=== PATIENT | male | born 1985 | race Caucasian/White ===

== ENCOUNTER 2018-05-02 18:40 | Emergency (ER) | payer OTHER ==
[2018-05-02 18:43] VITALS: BMI 29.8
[2018-05-02 18:50] VITALS: BP 119/76; PULSE 84; TEMP 98
--- NOTE | 2018-05-02 19:35 | PDOC ---
History of Present Illness - General History Source: Patient Exam Limitations: No Limitations - History of Present Illness Initial Comments: 05/02/18 20:51 The patient is a 32 year old male presenting with a friend, with no significant past medical history of, who presents to the ED complaining, who presents complaining of the ED complaining of a left pinky laceration that occurred today. He notes that he was using a brand new box office agent when he cut his finger. He notes that the cut was deep and on presentation there is very mild bleeding from the open cut. The patient denies ever receiving a tetanus shot. He denies any other kind of symptoms or injuries. The patient denies chest pain, shortness of breath, headache and dizziness. Denies fever, chills, nausea, vomiting, diarrhea or constipation. Allergies: None Past surgical history: None reported Social History: (+) Occasional alcohol use and tobacco use. No drug use reported <Brock Briceno - Last Filed: 05/02/18 20:53> <Jacquelyn Jauregui - Last Filed: 05/02/18 22:37> - General Chief Complaint: Laceration Stated Complaint: I CUT MY FINGER Time Seen by Provider: 05/02/18 19:35 Past History <Brock Briceno - Last Filed: 05/02/18 20:53> - Past Medical History COPD: No - Suicide/Smoking/Psychosocial Hx Smoking History: Current every day smoker Number of Cigarettes Smoked Daily: 10 Information on smoking cessation initiated: Yes Hx Alcohol Use: Yes (OCASIONAL) Drug/Substance Use Hx: No <Jacquelyn Jauregui - Last Filed: 05/02/18 22:37> - Past Medical History Allergies/Adverse Reactions: Allergies Allergy/AdvReac Type Severity Reaction Status Date / Time No Known Allergies Allergy Verified 05/02/18 18:41 Home Medications: Ambulatory Orders Bacitracin - [Bacitracin Topical Ointment -] 1 applic TP BID #10 g 05/02/18 Cephalexin Monohydrate [Keflex -] 250 mg PO Q6H #28 capsule 05/02/18 Review of Systems - Review of Systems Able to Perform ROS?: Yes Comments:: 05/02/18 20:53 GENERAL/CONSTITUTIONAL: No fever or chills. No weakness. HEAD, EYES, EARS, NOSE AND THROAT: No change in vision. No ear pain or discharge. No sore throat. GASTROINTESTINAL: No nausea, vomiting, diarrhea or constipation. GENITOURINARY: No dysuria, frequency, or change in urination. CARDIOVASCULAR: No chest pain or shortness of breath. RESPIRATORY: No cough, wheezing, or hemoptysis. MUSCULOSKELETAL: (+) Left pinky laceration. No joint or muscle swelling or pain. No neck or back pain. SKIN: No rash NEUROLOGIC: No headache, vertigo, loss of consciousness, or change in strength/ sensation. ENDOCRINE: No increased thirst. No abnormal weight change. HEMATOLOGIC/LYMPHATIC: No anemia, easy bleeding, or history of blood clots. ALLERGIC/IMMUNOLOGIC: No hives or skin allergy. <Brock Briceno - Last Filed: 05/02/18 20:53> *Physical Exam - Vital Signs Last Vital Signs Temp Pulse Resp BP Pulse Ox 98.0 F 84 17 119/76 100 05/02/18 18:41 05/02/18 18:41 05/02/18 18:41 05/02/18 18:41 05/02/18 18:41 - Physical Exam Comments: 05/02/18 20:53 Constitutional: Awake, alert, oriented. No acute distress. Head: Normocephalic. Atraumatic Musculoskeletal: No edema. No cyanosis. No clubbing. Full range of motion in all extremities. Nocalf tenderness. Radial/pedal pulses are intact and 2+ bilaterally Skin: Skin is warm and dry. No petechiae. No purpura. Neurological: Alert and oriented to person, place, and time. Cranial nerves II -XII are grossly intact. Normal speech. Strength is grossly symmetric. No sensory deficits. Psychiatric: Good eye contact. Normal interaction, affect and behavior. <Brock Briceno - Last Filed: 05/02/18 20:53> - Vital Signs Last Vital Signs Temp Pulse Resp BP Pulse Ox 98.0 F 84 17 119/76 100 05/02/18 18:41 05/02/18 18:41 05/02/18 18:41 05/02/18 18:41 05/02/18 18:41 <Jacquelyn Jauregui - Last Filed: 05/02/18 22:37> Procedures - Laceration/Wound Repair Left Dorsal Finger 5th digit Wound Length: to 2.5 cm Wound Explored: clean Wound's Depth, Shape: into muscle, linear Irrigated w/ Saline: Yes Betadine Prep: Yes Anesthesia: 1% Lidocaine Amount of Anesthetic (ccs): 5 Wound Repaired With: Sutures Suture Size/Type: 4:0, nylon Number of Sutures: 3 Layer Closure: No Sterile Dressing Applied: Yes Splint Applied: Yes Sling Applied: No <Jacquelyn Jauregui - Last Filed: 05/02/18 22:37> ED Treatment Course - Medications Given in the ED: ED Medications Discontinued Medications Generic Name Dose Route Start Last Admin Trade Name Robyq PRN Reason Stop Dose Admin Cephalexin HCl 500 mg 05/02/18 19:39 05/02/18 19:54 Keflex - PO 05/02/18 19:40 500 mg ONCE ONE Administration Tetanus/Diphtheria Toxoids Adsorbed 0.5 ml 05/02/18 19:40 05/02/18 19:54 Decavac IM 05/02/18 19:41 0.5 ml .ONCE ONE Administration <Brock Briceno - Last Filed: 05/02/18 20:53> *DC/Admit/Observation/Transfer - Attestations Scribe Attestion: 05/02/18 20:50 Documentation prepared by Brock Briceno, acting as medical practice assistant for Jacquelyn Jauregui MD <Brock Briceno - Last Filed: 05/02/18 20:53> - Discharge Dispostion Decision to Admit order: No <Jacquelyn Jauregui - Last Filed: 05/02/18 22:37> Diagnosis at time of Disposition: Finger laceration - Discharge Dispostion Disposition: HOME Condition at time of disposition: Improved - Prescriptions Prescriptions: Bacitracin - [Bacitracin Topical Ointment -] 1 applic TP BID #10 g Cephalexin Monohydrate [Keflex -] 250 mg PO Q6H #28 capsule - Patient Instructions Printed Discharge Instructions: DI for Laceration Repair - Post Discharge Activity Forms/Work/School Notes: Back to Work
[2018-05-02] MEDS ORDERED: CEPHALEXIN MONOHYDRATE 500 MG CAPSULE (UD) PO ONE (19:39)
[2018-05-02] MEDS ORDERED: TETANUS AND DIPHTHERIA TOXOID 0.5 ML DISP.SYRIN IM ONE ×2 (19:40→19:45)
[2018-05-02] MEDS ORDERED: CEPHALEXIN MONOHYDRATE 500 MG CAPSULE (UD) ONE (19:44)
== END 2018-05-02 21:31 | disposition home or self-care (01) ==
LOC: FER 18:40
PROC: 0HQGXZZ Repair Left Hand Skin, External Approach (ICD-10-PCS; principal; 2018-05-02)
PROC: 3E0234Z Introduction of Serum, Toxoid and Vaccine into Muscle, Percutaneous Approach (ICD-10-PCS; 2018-05-02)
DX: S61.217A Laceration without foreign body of left little finger without damage to nail, initial encounter (principal); W26.0XXA Contact with knife, initial encounter; Y93.89 Activity, other specified; Y92.89 Other specified places as the place of occurrence of the external cause; F17.210 Nicotine dependence, cigarettes, uncomplicated
CPT/HCPCS: 73140-TC-LT-FY; 99282-25

== ENCOUNTER 2018-05-16 16:16 | Emergency (ER) | payer OTHER ==
[2018-05-16 16:22] VITALS: BMI 31.8
[2018-05-16 16:31] VITALS: BP 107/76; PULSE 75; TEMP 98.6
--- NOTE | 2018-05-16 16:31 | PDOC ---
*Physical Exam - Vital Signs Last Vital Signs Temp Pulse Resp BP Pulse Ox 0/0 L 05/16/18 16:17 <Jer Fajardo - Last Filed: 05/16/18 16:30> - Vital Signs Last Vital Signs Temp Pulse Resp BP Pulse Ox 98.6 F 75 16 107/76 100 05/16/18 16:17 05/16/18 16:17 05/16/18 16:17 05/16/18 16:17 05/16/18 16:17 <Cinthia Brooks - Last Filed: 05/16/18 16:35> Medical Decision Making - Medical Decision Making 05/16/18 16:30 32y/o M here for uncomplicated suture removal from L 5th digit. placed on 05/02, noted xray wnl except for joing angulation. no infection sxs or signs, FROM and nvi. Three sutures removed, wound remained well approximated. bacitracin daily, return criteria discussed. <Jer Fajardo - Last Filed: 05/16/18 16:30> - Medical Decision Making 05/16/18 16:33 The patient is a 32-year-old male with no reported past medical history presents to the emergency department for suture removal. The patient was seen at the ER on 05/02/2018 s/p sustaining a laceration to the left pinky. The wound was sutured up, and the patient was instructed to follow up at the ER for suture removal. The patient presents today for suture removal. Denies any fever , chills, bloody or purulent discharge from the wound site. Denies pain to the finger. Denies redness or swelling. Allergies: NKDA Social history: Occasional alcohol and tobacco use. Denies the use of drugs. PCP: None reported. GENERAL: The patient is awake, alert, and fully oriented, in no acute distress. HEAD: Normal with no signs of trauma. EYES: Pupils equal, round and reactive to light, extraocular movements intact, sclera anicteric, conjunctiva clear. EXTREMITIES: Normal range of motion, no edema. NEUROLOGICAL: Normal speech, normal gait. PSYCH: Normal mood, normal affect. SKIN: +no redness or swelling, well healed wound. Warm, Dry, normal turgor, no rashes or lesions noted. <Cinthia Brooks - Last Filed: 05/16/18 16:35> *DC/Admit/Observation/Transfer <Jer Fajardo - Last Filed: 05/16/18 16:30> - Attestations Scribe Attestion: 05/16/18 16:35 Documentation prepared by Cinthia Brooks, acting as medical insurance coding specialist for Jer Fajardo MD. <Cinthia Brooks - Last Filed: 05/16/18 16:35> Diagnosis at time of Disposition: Visit for suture removal - Discharge Dispostion Disposition: HOME Condition at time of disposition: Stable - Patient Instructions Printed Discharge Instructions: DI for Suture Removal
== END 2018-05-16 16:33 | disposition home or self-care (01) ==
LOC: FER 16:16
DX: Z48.02 Encounter for removal of sutures (principal)
CPT/HCPCS: 99281-25